=== PATIENT | male | born 1960 | race African-American/Black ===

== ENCOUNTER 2019-07-08 13:39 | Outpatient (CLI) | payer OTHER ==
[~2019-07-08 13:39] MED LIST: ACET-689 PO; ALBUTEROL0.083 % IN; AMOX500C85 PO; CIPRO500 MG PO; CLARITHROMYC500 M1 PO; CLON1TAB18 PO; CYCL10TA35 PO; FLOXIN OT; LEXAPRO20 MG PO; LORA10TA3 PO; MEDROL DOSEPAK4 MG OR; METR250T19 PO; PRED20TA27 PO; RANI150T78 PO; SUCR1TAB35 PO; TERAZOSIN1 MG PO; TRIM800T12 PO; Z-PAK PO
[2019-07-08 14:51] LABS: PLATELET COUNT 221 K/uL (142-355)
[2019-07-08 15:35] LABS: POTASSIUM 3.6 mmol/L (3.6-5.2)
== END 2019-07-08 22:43 | disposition home or self-care (01) ==
LOC: LABW 13:39
PROVIDERS: Nurse Practitioner Family
DX: L83 Acanthosis nigricans (principal); L29.8 Other pruritus
CPT/HCPCS: 80053; 80074; 81000; 82272; 82784; 82785; 83036; 83540; 83550; 84165; 84439; 84443; 85027; 86038; 86376; 87328; 87329; 87338

== ENCOUNTER 2019-10-27 09:18 | Outpatient (CLI) | payer OTHER | END 2019-10-27 22:21 | disposition home or self-care (01) | LOC: RAD 09:18 | DX: M25.569 Pain in unspecified knee (principal); M54.2 Cervicalgia; M54.9 Dorsalgia, unspecified ==

== ENCOUNTER 2019-11-29 12:59 | Outpatient (CLI) | payer OTHER | END 2019-11-29 19:31 | disposition home or self-care (01) | LOC: MRI 12:59 | DX: M25.561 Pain in right knee (principal) ==

== ENCOUNTER 2020-01-07 20:54 | Emergency (ER) | payer OTHER ==
[~2020-01-07] VITALS: Ht 167.6 cm; Wt 97.1 kg
[2020-01-07] MEDS ORDERED: MOTRIN IB200 M1 PO (21:31)
[2020-01-07] MEDS ORDERED: ASPIRIN325 M1 PO (21:32)
[2020-01-07] MEDS ORDERED: CLON1TAB18 PO (21:32)
[2020-01-07] MEDS ORDERED: AZIT250T3 PO (21:33)
[2020-01-07] MEDS ORDERED: METH4PAK3 PO (21:34)
[2020-01-07] MEDS ORDERED: HYDROCHLOROT12.5 M1 PO (21:34)
[2020-01-07] MEDS ORDERED: AMLODIPINE BESYLATE PO (21:35)
[2020-01-07] MEDS ORDERED: GLIM2TAB PO (21:35)
[2020-01-07] MEDS ORDERED: HYDRALAZINE25 MG PO (21:35)
[2020-01-07] MEDS ORDERED: LEVO250T2 PO (21:36)
[2020-01-07 21:42] LABS: PLATELET COUNT 164 K/uL (142-355)
[2020-01-07 21:48] LABS: POTASSIUM 3.8 mmol/L (3.6-5.2)
[2020-01-08 00:41] VITALS: BP 121/86; TEMP 99.8
== END 2020-01-08 01:00 | disposition home or self-care (01) ==
LOC: ED 20:54
PROVIDERS: Family Medicine
DX: U07.1 COVID-19 (principal); R50.9 Fever, unspecified; R06.02 Shortness of breath; F41.8 Other specified anxiety disorders
CPT/HCPCS: 80053; 81000; 85027; 96374; 99284; J2060

== ENCOUNTER 2020-01-11 16:02 | Outpatient (CLI) | payer OTHER ==
[~2020-01-11 16:02] MED LIST changes: +AMLODIPINE BESYLATE PO; +ASPIRIN325 M1 PO; +AZIT250T3 PO; +GLIM2TAB PO; +HYDRALAZINE25 MG PO; +HYDROCHLOROT12.5 M1 PO; +LEVO250T2 PO; +METH4PAK3 PO; +MOTRIN IB200 M1 PO
[2020-01-12] MEDS ORDERED: CEFD300C2 PO (17:07)
== END 2020-01-11 23:35 | disposition home or self-care (01) ==
LOC: RAD 16:02
DX: R06.02 Shortness of breath (principal); U07.1 COVID-19; R07.81 Pleurodynia

== ENCOUNTER 2020-01-12 10:17 | Inpatient (IN) | payer OTHER ==
[~2020-01-12] VITALS: Ht 167.6 cm; Wt 99.4 kg
[2020-01-12 10:24] VITALS: BP 136/77; TEMP 98.1
[2020-01-12 11:05] LABS: POTASSIUM 3.3 mmol/L (3.6-5.2); SODIUM 140 mmol/L (136-145)
[2020-01-12 11:10] LABS: PLATELET COUNT 241 K/uL (142-355)
[2020-01-12 12:05] VITALS: BP 122/87
[2020-01-12 13:00] VITALS: BP 121/84; TEMP 98.5
[2020-01-12 14:30] VITALS: BP 119/77
[2020-01-12] MEDS ORDERED: CEFD300C2 PO (17:07)
[2020-01-12 18:27] VITALS: BP 119/75; TEMP 98.5; Ht 167.6 cm; Wt 99.4 kg
[2020-01-12 19:42] VITALS: BP 130/91; TEMP 101.4
[2020-01-13] VITALS (8 sets, daily range): BP systolic 100–127; BP diastolic 55–77; TEMP 97.5–98.9
[2020-01-14 04:00] VITALS: BP 118/76; TEMP 98.3
[2020-01-14 08:00] VITALS: BP 115/53; TEMP 98.3
[2020-01-14 12:00] VITALS: BP 109/70; TEMP 98.3
[2020-01-14 16:00] VITALS: BP 120/75; TEMP 98
[2020-01-14 20:20] VITALS: BP 121/76; TEMP 98.7
[2020-01-15] VITALS: BP 106/55; TEMP 98.3
[2020-01-15 04:53] VITALS: BP 115/68; TEMP 98.3
[2020-01-15 08:00] VITALS: BP 120/81; TEMP 98
[2020-01-15 12:00] VITALS: BP 110/71; TEMP 98.6
[2020-01-15 16:00] VITALS: BP 119/79; TEMP 98.4
[2020-01-15 20:00] VITALS: BP 115/73; TEMP 98.7
[2020-01-16] VITALS (7 sets, daily range): BP systolic 101–136; BP diastolic 50–80; TEMP 96.6–98.7
[2020-01-16 05:32] LABS: PLATELET COUNT 382 K/uL (142-355)
[2020-01-17 03:23] VITALS: BP 128/72; TEMP 98.5
[2020-01-17 08:00] VITALS: BP 119/74; TEMP 98.5
[2020-01-17 12:00] VITALS: BP 98/66; TEMP 98.7
[2020-01-17 16:00] VITALS: BP 95/63; TEMP 98.4
[2020-01-17 20:00] VITALS: BP 117/88; TEMP 99
[2020-01-18] VITALS: BP 120/82; TEMP 98.7
[2020-01-18 04:00] VITALS: BP 103/66; TEMP 98.7
[2020-01-18 08:00] VITALS: BP 108/69; TEMP 98.5
[2020-01-18 12:00] VITALS: BP 97/71; TEMP 98.2
[2020-01-18 16:00] VITALS: BP 107/75; TEMP 98.4
== END 2020-01-18 17:15 | disposition home or self-care (01) | DRG 177 ==
LOC: ED 10:17 → MED/SURG 13:13
PROVIDERS: Internal Medicine; ADMIT Emergency Medicine
DX: U07.1 COVID-19 (principal); J96.01 Acute respiratory failure with hypoxia; E11.9 Type 2 diabetes mellitus without complications; F41.8 Other specified anxiety disorders; E87.6 Hypokalemia; R79.89 Other specified abnormal findings of blood chemistry; I11.0 Hypertensive heart disease with heart failure; I50.9 Heart failure, unspecified
CPT/HCPCS: 36415; 80053; 82550; 82553; 83605; 84484; 85027; 85379; 87040; 87635; 93005; 94668; 94760; 96360; 96361; 96365; 96366; 96367; 96372; 96374; 96375; 99284; J0456; J1100; J1650; J1956; U0003

== ENCOUNTER 2020-02-09 13:47 | Outpatient (CLI) | payer OTHER ==
[~2020-02-09 13:47] MED LIST changes: +CEFD300C2 PO
== END 2020-02-10 00:03 | disposition home or self-care (01) ==
LOC: RAD 13:47
DX: J12.81 Pneumonia due to SARS-associated coronavirus (principal); R06.02 Shortness of breath

== ENCOUNTER 2020-10-31 10:28 | Outpatient (CLI) | payer OTHER ==
[2020-10-31 11:02] LABS: PLATELET COUNT 213 K/uL (142-355)
[2020-10-31 11:19] LABS: POTASSIUM 4.4 mmol/L (3.6-5.2)
== END 2020-10-31 22:05 | disposition home or self-care (01) ==
LOC: LABW 10:28
PROVIDERS: ATTEND Family Medicine
DX: R10.9 Unspecified abdominal pain (principal); R11.0 Nausea; Z87.442 Personal history of urinary calculi; M54.5 Low back pain
CPT/HCPCS: 36415; 80053; 81000; 85027

== ENCOUNTER 2021-11-16 09:44 | Outpatient (CLI) | payer OTHER | END 2021-11-16 20:26 | disposition home or self-care (01) | LOC: LABW 09:44 | PROVIDERS: ATTEND Family Medicine | DX: R74.8 Abnormal levels of other serum enzymes (principal) | CPT/HCPCS: 36415; 82977 ==

== ENCOUNTER 2021-12-07 12:48 | Outpatient (CLI) | payer OTHER | END 2021-12-07 21:19 | disposition home or self-care (01) | LOC: RAD 12:48 | PROVIDERS: ATTEND Family Medicine | DX: M79.644 Pain in right finger(s) (principal); M79.641 Pain in right hand ==

== ENCOUNTER 2022-06-18 12:18 | Outpatient (CLI) | payer OTHER | END 2022-06-18 20:36 | disposition home or self-care (01) | LOC: CT 12:18 | PROVIDERS: ATTEND Specialist | DX: R10.9 Unspecified abdominal pain (principal) ==

== ENCOUNTER 2023-02-21 15:13 | Outpatient (CLI) | payer OTHER | END 2023-02-21 19:08 | disposition home or self-care (01) | LOC: CT 15:13 | PROVIDERS: ATTEND Family Medicine | DX: R10.9 Unspecified abdominal pain (principal); Z87.442 Personal history of urinary calculi ==